=== PATIENT | female | born 1970 | race Caucasian/White ===

== ENCOUNTER → 2021-04-02 12:10 | Outpatient (CLI) | payer OTHER, SELFPAY ==
--- NOTE | 2021-04-02 12:12 | DI.RAD.S_ITS ---
PROCEDURE: XR SHOULDER LT MIN 2V INDICATIONS: L posterior shoulder pain post lifting injury TECHNIQUE: 3 views of the shoulder were acquired. COMPARISON: None. FINDINGS: Bones: No fractures or dislocations. No suspicious bony lesions. Visualized ribs appear intact. Soft tissues: No suspicious soft tissue calcifications. IMPRESSION: No acute osseous abnormality. Dictated by: Manuel Pittman M.D. on 04/02/2021 at 13:10 Approved by: Manuel Pittman M.D. on 04/02/2021 at 13:10
== END ==
PROVIDERS: Referring Provider Nurse Practitioner; Visit Provider Nurse Practitioner
DX: M25.512 Pain in left shoulder (principal); R20.2 Paresthesia of skin
CPT/HCPCS: 73030

== ENCOUNTER 2021-05-20 12:48 | Emergency (ER) | payer OTHER, SELFPAY ==
[2021-05-20 12:55] VITALS: BP 128/66; PULSE 74; RESP 14; TEMP 36.1; O2SAT 100; BMI 27.4
== END 2021-05-20 14:15 | disposition left against medical advice (07) ==
PROVIDERS: Emergency Provider Emergency Medicine
DX: Z53.21 Procedure and treatment not carried out due to patient leaving prior to being seen by health care provider (principal)
CPT/HCPCS: 99281

== ENCOUNTER 2021-06-22 14:35 | Emergency (ER) | payer OTHER, SELFPAY ==
[2021-06-22] VITALS (7 sets, daily range): BP systolic 124–144; BP diastolic 66–87; PULSE 63–77; RESP 14–24; TEMP 36.5; O2SAT 97–99; BMI 28.3
--- NOTE | 2021-06-22 14:39 | DI.RAD.S_ITS ---
PROCEDURE: XR CHEST 1V INDICATIONS: chest pain TECHNIQUE: One view of the chest was acquired. COMPARISON: None. FINDINGS: Surgical changes and devices: None. Lungs and pleura: Lungs are clear. No pleural effusions or pneumothorax. Mediastinum: Mediastinal contours appear normal. Heart size is normal. Bones and chest wall: No suspicious bony lesions. Overlying soft tissues appear unremarkable. IMPRESSION: Normal single-view chest x-ray Approved by: Crow De Jesus M.D. on 06/22/2021 at 14:15
[2021-06-22 16:11] LABS: Add Manual Diff / Slide Review NO; Basophils Absolute Auto 100 /uL (0-100); Basophils Percent Auto 1.3 % (0-2); Eosinophils Absolute Auto 200 /uL (0-450); Eosinophils Percent Auto 2.4 % (2-4); Hematocrit 35.5 % (36-46); Hemoglobin 11.9 g/dL (12.0-16.0); Lymphocytes Absolute Auto 2700 /uL (1100-4500); Lymphocytes Percent Auto 30.2 % (25-40); Mean Corpuscular HGB Conc 33.4 % (30-36); Mean Corpuscular Volume 83.9 fL (80-100); Monocytes Absolute Auto 600 /uL (0-900); Monocytes Percent Auto 6.7 % (3-14); Neutrophils Absolute Auto 5300 /uL (1500-7000); Neutrophils Percent Auto 59.4 % (50-75); Platelet Count 297 X10^3/uL (150-400); Red Blood Cell Count 4.24 X10^6/uL (4.0-5.2); White Blood Cell Count 8.9 X10^3/uL (4.5-11.0)
[2021-06-22 16:21] LABS: Alanine Aminotransferase 14 IU/L (<35); Albumin 4.4 g/dL (3.5-5.0); Albumin Globulin Ratio 1.5 (1.0-2.8); Alkaline Phosphatase 55 U/L (38-126); Aspartate Aminotransferase 23 IU/L (14-36); Bilirubin Total 0.3 mg/dL (0.2-1.3); Blood Urea Nitrogen 9 mg/dL (7-17); Calcium 9.2 mg/dL (8.4-10.2); Carbon Dioxide 25 mmol/L (22-32); Chloride 106 mmol/L (98-107); Creatine Kinase 70 U/L (30-135); Estimated Glomerular Filt Rate > 60.0 mL/min (>60); Glucose 91 mg/dL (70-100); HEMOLYSIS 17 (0-50); Lipase 95 U/L (23-300); Magnesium 1.6 mg/dL (1.6-2.3); Potassium 3.6 mmol/L (3.4-5.1); Sodium 137 mmol/L (137-145); Total Protein 7.4 g/dL (6.3-8.2)
[2021-06-22 16:31] LABS: Troponin I < 0.012 ng/mL (0.01-0.034)
[2021-06-22 19:24] LABS: COVID19 -Nasal RAPID Negative (Negative)
--- NOTE | 2021-06-22 20:00 | ED_ITS ---
HPI - Chest Pain General Chief Complaint: Chest Pain Stated Complaint: Chest pain x3 days, getting sharper/ up neck Time Seen by Provider: 06/22/21 19:46 Source: patient Mode of arrival: Ambulatory Limitations: no limitations History of Present Illness HPI narrative: Patient is a 50-year-old female who is here for evaluation of 3 days of a chest discomfort. She does state that it is been constant for the past 3 days. It is getting much more sharp in discomfort. Does radiate to her neck. Also feeling somewhat short of breath. No fevers. Not worse with palpation or movement. Not worse with moving her arm. Has not tried anything for the symptoms prior to arrival. Related Data Allergies Allergy/AdvReac Type Severity Reaction Status Date / Time No Known Drug Allergies Allergy Verified 05/20/21 12:57 Review of Systems Constitutional Constitutional: Reports system reviewed and no additional complaints, except as documented Cardiovascular Cardiovascular: Reports as per HPI and Reports system reviewed and no additional complaints, except as documented Respiratory Respiratory: Reports as per HPI and Reports system reviewed and no additional complaints, except as documented Gastrointestinal Gastrointestinal: Reports system reviewed and no additional complaints, except as documented Musculoskeletal Musculoskeletal: Reports system reviewed and no additional complaints, except as documented Integumentary/Breasts Skin/Breast: Reports system reviewed and no additional complaints, except as documented Neurologic Neurologic: Reports system reviewed and no additional complaints, except as documented Hematologic/Lymphatic On Anticoagulants: No Patient History Medical History Anxiety and depression (~1999) Chronic back pain (~1994) GERD (gastroesophageal reflux disease) (~2010) History of Graves' disease (~2018) Hyperthyroidism (~2018) Spine pain (~1994) Vitiligo Surgical History Anesthesia History of partial hysterectomy (~2007) History of sinus surgery (~1997) History of tonsillectomy and adenoidectomy (~1975) Family History Father Cancer Stroke Social History Smoking Status: Current every day smoker Smoking Status: Current every day smoker alcohol intake frequency: a few times a week Substance Use Type: does not use Exam Initial Vital Signs Initial Vital Signs: Vital Signs Temperature 97.7 F 06/22/21 14:39 Pulse Rate 77 06/22/21 14:39 Respiratory Rate 20 06/22/21 14:39 Blood Pressure 135/66 06/22/21 14:39 Pulse Oximetry 99 06/22/21 14:39 HENAR Head: normal to inspection Resp Effort & Inspection: normal respiratory effort Auscultation: clear to auscultation bilaterally Cardio Rate: regular rate Rhythm: regular rhythm Skin General: no rashes or lesions noted Neuro General: patient alert, patient awake, patient oriented x3 and moves all extremities Extrem General: normal to inspection and capillary refill normal Psych Appearance: grossly normal and well kempt Course Orders Ordered: ED Orders 06/22/21 18:32 COVID19 -Nasal swab/Pre-Proc Stat 06/22/21 20:10 Troponin I Stat Vital Signs Vital signs: Vital Signs - 8 hr 06/22/21 18:29 06/22/21 18:30 06/22/21 19:00 Pulse Rate 67 63 63 Respiratory Rate 15 14 16 Blood Pressure 124/74 137/76 Pulse Oximetry 99 99 98 06/22/21 19:30 06/22/21 20:00 06/22/21 20:30 Pulse Rate 63 64 64 Respiratory Rate 17 19 24 Blood Pressure 143/82 H 144/87 H Pulse Oximetry 97 98 97 MDM - Chest Pain Lab Data Attestation: I reviewed the patient's lab results. Result diagrams: 06/22/21 15:52 06/22/21 15:52 Labs: Lab Results 06/22/21 06/22/21 06/22/21 Range/Units 15:52 15:52 18:32 WBC 8.9 (4.5-11.0) X10^3/uL RBC 4.24 (4.0-5.2) X10^6/uL Hgb 11.9 L (12.0-16.0) g/dL Hct 35.5 L (36-46) % MCV 83.9 (80-100) fL MCH 28.0 (26-34) PG MCHC 33.4 (30-36) % RDW 13.0 (11.6-14.8) % Plt Count 297 (150-400) X10^3/uL Neut % (Auto) 59.4 (50-75) % Lymph % (Auto) 30.2 (25-40) % [place] % (Auto) 6.7 (3-14) % Eos % (Auto) 2.4 (2-4) % Baso % (Auto) 1.3 (0-2) % Neut # (Auto) 5300 (5975-0122) /uL Lymph # (Auto) 2700 (5744-0244) /uL [place] # (Auto) 600 (0-900) /uL Eos # (Auto) 200 (0-450) /uL Baso # (Auto) 100 (0-100) /uL Sodium 137 (137-145) mmol/L Potassium 3.6 (3.4-5.1) mmol/L Chloride 106 (98-107) mmol/L Carbon Dioxide 25 (22-32) mmol/L BUN 9 (7-17) mg/dL Creatinine 0.60 (0.52-1.04) mg/dL Estimated GFR > 60.0 (>60) mL/min BUN/Creatinine Ratio 15.0 (6-22) Glucose 91 (70-100) mg/dL Calcium 9.2 (8.4-10.2) mg/dL Magnesium 1.6 (1.6-2.3) mg/dL Total Bilirubin 0.3 (0.2-1.3) mg/dL AST 23 (14-36) IU/L ALT 14 (<35) IU/L Alkaline Phosphatase 55 (38-126) U/L Total Creatine Kinase 70 (30-135) U/L CK-MB (CK-2) TNP CK-MB (CK-2) Rel Index TNP Troponin I < 0.012 (0.01-0.034) ng/mL Total Protein 7.4 (6.3-8.2) g/dL Albumin 4.4 (3.5-5.0) g/dL Globulin 3.0 (1.7-4.1) g/dL Albumin/Globulin Ratio 1.5 (1.0-2.8) Lipase 95 (23-300) U/L SARS-CoV-2 (PCR) Negative (Negative) 06/22/21 Range/Units 20:10 WBC (4.5-11.0) X10^3/uL RBC (4.0-5.2) X10^6/uL Hgb (12.0-16.0) g/dL Hct (36-46) % MCV (80-100) fL MCH (26-34) PG MCHC (30-36) % RDW (11.6-14.8) % Plt Count (150-400) X10^3/uL Neut % (Auto) (50-75) % Lymph % (Auto) (25-40) % [place] % (Auto) (3-14) % Eos % (Auto) (2-4) % Baso % (Auto) (0-2) % Neut # (Auto) (6603-1948) /uL Lymph # (Auto) (6928-2680) /uL [place] # (Auto) (0-900) /uL Eos # (Auto) (0-450) /uL Baso # (Auto) (0-100) /uL Sodium (137-145) mmol/L Potassium (3.4-5.1) mmol/L Chloride (98-107) mmol/L Carbon Dioxide (22-32) mmol/L BUN (7-17) mg/dL Creatinine (0.52-1.04) mg/dL Estimated GFR (>60) mL/min BUN/Creatinine Ratio (6-22) Glucose (70-100) mg/dL Calcium (8.4-10.2) mg/dL Magnesium (1.6-2.3) mg/dL Total Bilirubin (0.2-1.3) mg/dL AST (14-36) IU/L ALT (<35) IU/L Alkaline Phosphatase (38-126) U/L Total Creatine Kinase (30-135) U/L CK-MB (CK-2) CK-MB (CK-2) Rel Index Troponin I < 0.012 (0.01-0.034) ng/mL Total Protein (6.3-8.2) g/dL Albumin (3.5-5.0) g/dL Globulin (1.7-4.1) g/dL Albumin/Globulin Ratio (1.0-2.8) Lipase (23-300) U/L SARS-CoV-2 (PCR) (Negative) Imaging Data Chest x-ray: Radiologist's Impression: [address] [address] XRay Report Signed Patient: Libra Ramirez MR#: [id number] : 1970 Acct:[id number] Age/Sex: 50 / F Date of Service: 06/22/21 Loc: ED Accession Number: [id number] ?? Procedure: XR chest 1V Ordering Provider: Lluvia Mckeon MD PROCEDURE:? XR CHEST 1V ? INDICATIONS:? chest pain ? TECHNIQUE:? One view of the chest was acquired.? ? COMPARISON:? None. ? FINDINGS:? ? Surgical changes and devices:? None.? ? Lungs and pleura:? Lungs are clear.? No pleural effusions or pneumothorax.? ? Mediastinum:? Mediastinal contours appear normal.? Heart size is normal.? ? Bones and chest wall:? No suspicious bony lesions.? Overlying soft tissues appear unremarkable.? ? IMPRESSION:? Normal single-view chest x-ray ? ? ? Approved by: Crow De Jesus M.D. on 06/22/2021 at 14:15? ECG Data Attestation: I personally reviewed and interpreted this ECG as follows: Interpretation: Sinus rhythm Ventricular rate of 74 Normal axis Normal QRS Normal QTC No ST T wave changes MDM Narrative Medical decision making narrative: COVID negative, troponin is negative x2. EKG is unremarkable. Has had symptoms for 3 days. Low suspicion for ACS. Low suspicion for pulmonary embolism. Chest x-ray is negative. No indication for antibiotics. The patient contact her primary doctor for further workup. She was given return precautions. She expressed understanding and agreement. Discharge Plan Departure Patient Disposition: Home Clinical Impression: Atypical chest pain Instructions: DI for Atypical Chest Pain Activity Restrictions/Additional Instructions: Contact your primary doctor for a follow-up. Return to the emergency department for any new or worsening symptoms.
[2021-06-22 20:50] LABS: Troponin I < 0.012 ng/mL (0.01-0.034)
== END 2021-06-22 21:13 | disposition home or self-care (01) ==
PROVIDERS: Emergency Medicine; Emergency Provider Emergency Medicine
DX: R07.89 Other chest pain (principal); Z20.822 Contact with and (suspected) exposure to COVID-19
CPT/HCPCS: 36415; 71045; 80053; 82550; 83690; 83735; 84484; 85025; 87635; 93005; 99283; 99284; C9803

== ENCOUNTER → 2021-11-10 08:31 | Outpatient (CLI) | payer OTHER, SELFPAY ==
[2021-11-10 09:59] LABS: Add Manual Diff / Slide Review NO; Basophils Absolute Auto 0 /uL (0-100); Basophils Percent Auto 0.8 % (0-2); Eosinophils Absolute Auto 200 /uL (0-450); Hematocrit 35.5 % (36-46); Hemoglobin 11.9 g/dL (12.0-16.0); Lymphocytes Absolute Auto 2200 /uL (1100-4500); Lymphocytes Percent Auto 34.6 % (25-40); Mean Corpuscular HGB Conc 33.4 % (30-36); Mean Corpuscular Hemoglobin 28.3 PG (26-34); Mean Corpuscular Volume 84.7 fL (80-100); Monocytes Absolute Auto 500 /uL (0-900); Monocytes Percent Auto 8.2 % (3-14); Neutrophils Absolute Auto 3300 /uL (1500-7000); Neutrophils Percent Auto 52.4 % (50-75); Platelet Count 265 X10^3/uL (150-400); Red Blood Cell Count 4.19 X10^6/uL (4.0-5.2); White Blood Cell Count 6.2 X10^3/uL (4.5-11.0)
== END ==
PROVIDERS: Referring Provider Orthopaedic Surgery Orthopaedic Surgery of the Spine; Visit Provider Orthopaedic Surgery Orthopaedic Surgery of the Spine
DX: Z01.812 Encounter for preprocedural laboratory examination (principal)
CPT/HCPCS: 36415; 85025

== ENCOUNTER → 2021-11-20 11:41 | Outpatient (CLI) | payer OTHER, SELFPAY ==
[2021-11-20 12:28] LABS: COVID19 -Nasal RAPID Negative (Negative)
== END ==
PROVIDERS: Visit Provider Family Medicine Sleep Medicine
DX: Z20.822 Contact with and (suspected) exposure to COVID-19 (principal)
CPT/HCPCS: 87635

== ENCOUNTER 2021-11-23 12:11 | Day surgery (SDC) | payer OTHER, SELFPAY ==
[2021-11-18 08:16] VITALS: BMI 28.3
[2021-11-23] VITALS (12 sets, daily range): BP systolic 117–155; BP diastolic 68–88; PULSE 75–102; RESP 10–19; TEMP 35.8–36.8; O2SAT 91–99; BMI 28.3
[2021-11-23] MEDS: LACTATED RINGERS 1,000 ML 100 ML IV ×2 (12:49→15:28)
--- NOTE | 2021-11-23 13:37 | PM.PREOP ---
Pre-operative Note COVID-19 COVID-19 status: Negative Result date/Date tested (Pos, Neg/Pending): 11/22/21 Criteria for continued procedure: Expected advancement of disease process, Possibility delay results in more complex future surgery or treatment, Increased loss of function, Continuing or worsening of significant or severe pain, Deterioration of the patient's condition or overall health and Delay expected to result in less-positive ultimate med/surg outcome Interval Note History & Physical reviewed/Exam performed by Physician: Yes Changes to H&P: No
[2021-11-23] MEDS: CEFAZOLIN 2 GM/20 ML SYRINGE IV ×2 (14:28→22:30)
--- NOTE | 2021-11-23 14:46 | SUR.OPER ---
Supine on padded OR bed, head on pillow, arms secured at sides with blanket and towel clamps, legs uncrossed, safety belt at thigh, tape over blanket over lower legs.
[2021-11-23] MEDS: BUPIVACAINE 0.25% (PF) 30 ML, EPINEPHrine 0.15 MG INJ (16:20)
--- NOTE | 2021-11-23 16:29 | DI.RAD.S_ITS ---
PROCEDURE: XR CERVICAL SPINE 2V OR 3V INDICATIONS: C5-6, C6-7 ACDF TECHNIQUE: 2 intraoperative view(s) of the cervical spine were acquired. COMPARISON: [facility] [place] RENEE Gunter, XR CERVICAL SPINE 2 OR 3 VIEWS, 05/25/2021, 13:11. FINDINGS: ACDF spanning C5-C7. The hardware projects in the expected location on the frontal projection. On the lateral view of the inferior aspect of the hardware is not well seen. Ray-Ronaldo sponge at the left neck. Endotracheal tube in the upper trachea. IMPRESSION: Intraoperative guidance provided for ACDF. Dictated by: Manuel Pittman M.D. on 11/23/2021 at 16:48 Approved by: Manuel Pittman M.D. on 11/23/2021 at 16:51
--- NOTE | 2021-11-23 16:35 | PM.OP.1 ---
Operative Date/Time/Diagnoses Date of procedure: 11/23/21 Time of procedure: 14:00 Pre-op diagnosis: 1. C5-6, C6-7 spinal stenosis 2. C5-6, C6-7 spondylosis with radiculopathy Post-op diagnosis: same Procedure & Clinicians Procedure: 1. C5-6 C6-7 anterior cervical diskectomy and fusion 2. C5-6 C6-7 anterior interbody cage placement 3. C5-6 C6-7 anterior instrumentation with plate and screw placement in C5-C6 and C7 vertebrae 4. Utilization of microsurgical technique and operating microscope Same procedure as scheduled: Yes Indications: Patient has been having chronic neck pain and worsening cervical radiculopathy. Patient failed multiple conservative management with worsening pain weakness and numbness in her upper extremity. Patient has been having difficulty performing activity of daily living. After discussing risks benefits of treatment options, patient elected proceed with surgery. Surgeon: Markos Wong Dimpling Machine Operator: Katlin Hernandez Click Yes if Unassisted: No Anesthesia Type: General Operative Notes Closure Type: primary Specimen(s): none sent Prosthetic devices, grafts, tissues, transplants, or devices: Globus Extend Plate, Titanium cages Estimated Blood Loss (mL): 5 Blood products transfused: none Procedure in detail: Patient was seen in the preoperative area. Risks and benefits of the surgery was discussed with the patient. Operative consent was obtained and placed in the chart. Patient was then taken to the operative room. Prophylactic antibiotic was given less than 0.5 hr prior to skin incision. General anesthesia was administered. Patient was placed into a supine position on her radiolucent table. Bilateral shoulders were taped down to allow proper C-arm imaging. Anterior cervical area was prepped and draped in a sterile fashion. Time-out was performed at this time. Using lateral C-arm imaging, the level between C5 and C7 was identified and marked on patient's neck. A oblique incision from midline towards medial border of sternocleidomastoid muscle was made. The platysma muscle was incised in line with skin incision. Metzenbaum scissor was used to develop the plane between the medial border of sternocleidomastoid d and the strap muscles medially. The carotid sheath and its contents were identified and protected behind the hand-held retractor during the entire case. The plane between the carotid sheath and strap muscles was developed with Metzenbaum scissors. Dissection was made down to the level of the anterior cervical fascia. Longus colli muscle was incised on the anterior aspect of vertebral bodies bilaterally from C5-C7. Spinal needle was placed into the C5-6 disc space and confirmed with lateral C-arm imaging. Using microsurgical technique and operative microscope, anterior cervical diskectomy was performed at C5-6 and C6-7 level. This was done by removing the disc material, removing the anterior and posterior osteophytes posterior longitudinal ligaments along with performing bilateral foraminotomies at both levels. Patient was found to have severe central and foraminal stenosis at both levels. Patient's stenosis was fully decompressed after decompression was completed. After the diskectomy was completed, 2 anterior interbody cages were obtained. The cages were packed with DBM bone grafting material. One cage each along with the bone grafting material was then packed into the interbody spaces from C5-C7 with one cage into each interbody level. After the cages were placed, the anterior cervical plate was stabilized to the C5-C7 vertebrae using 2 screws at each each level. Total 6 screws were placed. After confirming placement of the hardware with AP and lateral C-arm imaging, the screws were locked into the plate using the locking mechanism and torque limiting screwdriver. After the hardware was placed and confirmed with AP and lateral C-arm imaging, the wound was irrigated with sterile normal saline. The platysma muscle and the subcutaneous tissue was closed with 2-0 Vicryl. The skin was closed with 4-0 Monocryl and Steri-Strips. Patient tolerated the procedure well. Patient was transferred recovery room in stable condition. There were no complications. Complications: none Post-operative Condition: stable Disposition: PACU Plan for aftercare: Admit to inpatient hospital
[2021-11-23] MEDS: fentaNYL 100 MCG/2 ML INJ 50 MCG IV (17:10)
[2021-11-23] MEDS: fentaNYL 100 MCG/2 ML INJ IV (17:20)
[2021-11-23] MEDS: LORazepam 2 MG/ML INJ 0.5 MG IV (17:25)
[2021-11-23] MEDS: OXYCODONE/ACETAMINOPHEN 5/325 TABLET 1 TAB PO ×2 (17:28→17:58)
[2021-11-23] MEDS: SODIUM CHLORIDE 0.9% 1,000 ML 100 ML IV (18:29)
[2021-11-23] MEDS: DOCUSATE 100 MG CAPSULE PO (20:06)
[2021-11-23] MEDS: SENNOSIDES 8.6 MG TABLET 17.2 MG PO (20:07)
[2021-11-23] MEDS: OXYCODONE IR 5 MG TABLET PO ×2 (20:07→23:06)
[2021-11-23] MEDS: HYDROMORPHONE 0.5 MG INJ IV (22:14)
[2021-11-24] MEDS: HYDROMORPHONE 0.5 MG INJ IV ×2 (01:20→04:07)
[2021-11-24] MEDS: OXYCODONE IR 5 MG TABLET PO ×3 (02:50→10:13)
[2021-11-24 05:23] VITALS: BP 120/74; PULSE 71; RESP 19; TEMP 36.4; O2SAT 96
[2021-11-24] MEDS: CEFAZOLIN 2 GM/20 ML SYRINGE IV (05:49)
[2021-11-24] MEDS: PANTOPRAZOLE DR 40 MG TABLET PO (05:49)
--- NOTE | 2021-11-24 07:32 | P.DS_ITS ---
History of Present Illness History of Present Illness Date Patient Seen: 11/24/21 Time Patient Seen: 07:33 Chief complaint: Neck pain Narrative: Currently her pain is mild. She is tired and she was kept up all night by the noise and staff constantly in her room. No fever chills. No nausea vomiting. States her throat is little sore but not having difficulty swallowing. No shortness of breath or chest pain. Discharge Providers Provider Discharge Date: 11/24/21 Primary care physician: Doctor Jonnie MD Consults: 11/23/21 12:58 Consult to Respiratory Therapy Evaluate & Treat Comment: Physician Instructions: Evaluate and treat 11/23/21 18:05 Consult to Occupational Therapy Evaluate & Treat Comment: Physician Instructions: Evaluate and treat Consult to Physical Therapy Evaluate & Treat Comment: Physician Instructions: Evaluate and Treat Discharge provider: Andrzej Camara PA-C Summary Hospital Course Discharge Diagnosis: 1. C5-6, C6-7 spinal stenosis 2. C5-6, C6-7 spondylosis with radiculopathy Hospital Course: 1.? C5-6 C6-7 anterior cervical diskectomy and fusion 2.? C5-6 C6-7 anterior interbody cage placement 3.? C5-6 C6-7 anterior instrumentation with plate and screw placement in C5-C6 and C7 vertebrae 4.? Utilization of microsurgical technique and operating microscope Same procedure as scheduled: Yes Indications: Patient has been having chronic neck pain and worsening cervical radiculopathy. Patient failed multiple conservative management with worsening pain weakness and numbness in her upper extremity.? Patient has been having difficulty performing activity of daily living.? After discussing risks benefits of treatment options, patient elected proceed with surgery. Surgeon: Markos Wong Search Marketing Coordinator: Katlin Hernandez Click Yes if Unassisted: No Anesthesia Type: General Patient admitted to hospital for the above-mentioned procedure. Patient consented to the same. Patient taken to the operating room on November 24, 2019 to underwent C5-C6 C6-C7 anterior fusion. Patient back in her room recovering well as in stable condition. Patient has assistance at home. Patient will mobilize with physical therapy in both discharge home today in stable condition if safe for home environment. Exam Vital Signs (past 8 hours): - 11/24/21 05:23 Temperature 97.5 F L Pulse Rate 71 Respiratory Rate 19 Blood Pressure 120/74 Pulse Oximetry 96 Oxygen Delivery Method Room Air Oxygen Flow Rate 0 Narrative Exam Narrative: 51-year-old female resting comfortably in bed in no apparent distress. Cervical collar in place. Scant drainage on the dressing. Motor functions intact bilateral upper extremities. Sensation grossly intact to light touch bilateral upper extremities. Const General: cooperative Resp Effort & Inspection: normal respiratory effort and able to speak in complete sentences [facility] Medical History Anxiety and depression (~1999) Arthritis Chronic back pain (~1994) DDD (degenerative disc disease) GERD (gastroesophageal reflux disease) (~2010) History of Graves' disease (~2018) Hx of thyroid irradiation Hyperthyroidism (~2018) IBS (irritable bowel syndrome) Numbness and tingling Salmonella (2012) Spinal stenosis, cervical region Spine pain (~1994) Vitiligo Surgical History Anesthesia History of partial hysterectomy (~2007) History of sinus surgery (~1997) History of tonsillectomy and adenoidectomy (~1975) Family History Father Cancer Stroke Social History household members: spouse Smoking Status: Current every day smoker alcohol intake: current Discharge Assessment & Plan Assessment and Plan Assessment: Patient progressing as expected status post cervical fusion. Plan of Treatment: Mobilize with physical therapy Soft collar for come Limit bending, twisting, lifting Multimodal pain management Discharge home today in stable condition Discharge Plan Discharge Plan Patient Disposition: Home Discharge orders & Medications Discharge Orders: Discharge (Order); Ordered 11/24/21 Ordered By: Andrzej Camara Prescriptions: New acetaminophen 325 mg Tablet 650 mg PO Q6HR PRN (Reason: Pain, Mild (1-3)) Qty: 60 0RF docusate sodium 100 mg Capsule 100 mg PO BID Qty: 20 0RF oxycodone 5 mg Tablet 5 mg PO Q3HR PRN (Reason: Pain, Moderate (4-6)) Qty: 60 0RF hydroxyzine pamoate 25 mg Capsule 25 mg PO Q4HR PRN (Reason: Nausea And Vomiting) Qty: 20 0RF Continued escitalopram oxalate 20 mg Tablet 20 mg PO DAILY 0RF cetirizine [Zyrtec] 10 mg Tablet 10 mg PO DAILY 0RF omeprazole 40 mg Capsule,Delayed Release(Dr/Ec) 40 mg PO DAILY 0RF levothyroxine 150 mcg Tablet 150 mcg PO DAILY 0RF Label Comments: Pt takes extra 1/2 tab one day a week(Tuesday) Follow up/Referrals: Markos Wong MD [Physician] - (2 weeks) Doctor Cristina MD [Primary Care Provider] - Diet/Activity/Treatments Diet: Diet as Tolerated Activity: Limit bending, twisting, lifting Other treatments: Soft collar for comfort Skin/Wound/Dressing Care Report to your healthcare provider any signs of infection, such as:: chills, fever, increased pain, unusual drainage and unusual redness Dressing: Keep dressing clean and dry Visit Report/Discharge Packet Instructions: DI for Anterior Cervical Discectomy and Fusion Stand Alone Forms: Surgery Discharge Discharge Data Primary Care Provider: Doctor Jonnie Attending Provider: Markos Wong
[2021-11-24 08:00] VITALS: BP 130/85; PULSE 70; RESP 17; TEMP 36.6; O2SAT 95
[2021-11-24] MEDS: LORATADINE 10 MG TABLET PO (08:24)
[2021-11-24] MEDS: LEVOTHYROXINE 150 MCG TABLET PO (08:24)
[2021-11-24] MEDS: ESCITALOPRAM 10 MG TABLET 20 MG PO (08:24)
[2021-11-24] MEDS: DOCUSATE 100 MG CAPSULE PO (08:24)
--- NOTE | 2021-11-24 09:05 | OT.IP.EVAL ---
Current Diagnoses Other spondylosis with myelopathy, cervical region (11/23/21) Spinal stenosis, cervical region (11/23/21) Surgery Performed Operation Date: 11/23/21 13:45 Actual Procedures p C5-6, C6-7 ACDF w. anterior instrumentation(Not Applicable) - Markos Wong MD Past Medical History (Last Reviewed 11/24/21 @ 07:36 by Andrzej Camara PA-C) Anxiety and depression (~1999) Arthritis Chronic back pain (~1994) DDD (degenerative disc disease) GERD (gastroesophageal reflux disease) (~2010) History of Graves' disease (~2018) History of partial hysterectomy (~2007) History of sinus surgery (~1997) History of tonsillectomy and adenoidectomy (~1975) Hx of thyroid irradiation Hyperthyroidism (~2018) IBS (irritable bowel syndrome) Numbness and tingling Salmonella (2012) Spinal stenosis, cervical region Spine pain (~1994) Vitiligo Surgical History (Last Reviewed 11/24/21 @ 07:36 by Andrzej Camara PA-C) Anesthesia History of partial hysterectomy (~2007) History of sinus surgery (~1997) History of tonsillectomy and adenoidectomy (~1975) Occupational Therapy Inpatient Evaluation/Re-Eval M1 PT/OT-IP Prior Functional Status Start: 11/24/21 09:29 Freq: NEEDED Status: Active Protocol: Document 11/24/21 09:05 [facility] (Rec: 11/24/21 09:45 [facility] [id number]) Medical Review Prior Functional Status Communication Independent Mobility and Gait Independent and did not use a device. Activities of Daily Living and IADL's Had pain but able to do all her ADL and IADL needs with increased time. Social History Household Members spouse Living Arrangements House Number of Stairs To Enter/Railing? 5-6 steps with bilateral wide rails to get into the house. 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 M2 OT-IP Current Condition Start: 11/24/21 09:29 Freq: Status: Active Protocol: Document 11/24/21 09:05 [facility] (Rec: 11/24/21 09:45 [facility] [id number]) Occupational Therapy Current Condition Current Condition Evaluation Date 11/24/21 Treatment Diagnosis S/p C5-6, C6-7 ACDF Diagnosis Onset Date 11/23/21 M3 OT- IP Subjective and Pain Start: 11/24/21 09:29 Freq: Status: Active Protocol: Document 11/24/21 09:05 [facility] (Rec: 11/24/21 09:45 [facility] [id number]) OT- Subjective Occupational Therapy Visit Type Type Initial Evaluation Visit Start Time 09:05 Visit Stop Time 09:26 Total Visit Minutes 21 Occupational Therapy Visit Comments Patient Comments Pt agreed to get up and get dressed. Pt's present in the room. Patient/Caregiver Goals TO go home. OT Pain Assessment Pain When Pain Assessed At Rest Pain Present Pain Present Pain Reported Location Posterior Neck Intensity 6 Scale Used Numeric (0 - 10) M4 OT- IP ADL's Start: 11/24/21 09:29 Freq: Status: Active Protocol: Document 11/24/21 09:05 [facility] (Rec: 11/24/21 09:45 [facility] [id number]) OT [id number] Comments OT Self-Feeding Comments Educated pt on suggestions for swallowing needs after ACDF, chew food thoroughly, sit upright, cold food and softer foods. OT ADL-Grooming General Evaluation Grooming Ability Independent OT ADL-Oral Care General Eval Oral Care Ability Standby Assistance Comments Oral Care Comments Educated to either spit into cup or hinge at her hips to spit in the sink. OT ADL-Dressing General Eval Upper Body Dressing Ability Minimal Assistance Lower Body Dressing Ability Standby Assistance Comments OT Dressing Comments Assist to help get tank top over her head first and then able to get her arms in . Pt able to comfortably cross her legs over to maryann her pants. OT ADL-Toileting Comments OT Toileting Comments Pt states has already been up to use the toilet. Suggested at night may be beneficial to wears pads at night as pt has to get up 1-2 times at night. ALso suggested wet ones can be helpful for hygiene needs. OT ADL-Bathing Comments OT Bathing Comments Pt states to shower at home. Pt's to assist and pt aware to get a shower chair if needed. M5 OT- IP IADL's Start: 11/24/21 09:29 Freq: Status: Active Protocol: Document 11/24/21 09:05 [facility] (Rec: 11/24/21 09:45 [facility] [id number]) OT-Instrumental Activities of Daily Living Home Safety Awareness Awareness of Need for Assistance at Home Good Awareness Ability to Problem Solve Emergency Able to Problem Solve Situations Home Safety Comments Pt's to be home to assist pt for needs. M6 OT- IP Functional Cognition Start: 11/24/21 09:29 Freq: Status: Active Protocol: Document 11/24/21 09:05 [facility] (Rec: 11/24/21 09:45 [facility] [id number]) Cognitive Factors Limiting Selfcare Function Cognitive Ability Level of Alertness Alert Patient Orientation Name,Age,Birthday,Month,Date, Year,Day of Week,Place, Situation Attention Span Ability Capable of Focused Attention, Capable of Sustained Attention Ability to Follow Commands Able to Follow Multi-Step Commands Memory Description No Deficits Noted Safety Awareness No Deficits Noted Cognitive Comments Cognitive Assessment Comments Pt just mainly needing assist to slow down and be sure to ask for assistance as needed. OT- Vision and Hearing OT- Hearing Assessment OT- Hearing Assessment WFL OT- Vision Assessment Visual Acuity Glasses For Reading M7 OT- IP Mobility and Balance Start: 11/24/21 09:29 Freq: Status: Active Protocol: Document 11/24/21 09:05 [facility] (Rec: 11/24/21 09:45 [facility] [id number]) OT- Bed Mobility Assessment Rolling Type of Rolling Log Rolling Level of Assistance Standby Assistance Supine to Sit Supine to Sit Assist Standby Assistance Sit to Supine Sit to Supine Assist Standby Assistance OT-Transfer Assessment Sit to and From Stand Sit to and from Stand Standby Assistance Transfers Transfer Ability Standby Assistance Technique Transfer Destination Bed Transfer Technique Stand Step Pivot Devices Transfer Assistive Devices None Comments Mobility Comments Pt needing initial education for log rolling and then able to do on her own. Distant SBA for mobility in the room without a device. OT- Balance Assessment Sitting Balance and Reactions Static Sitting Balance Ability Normal Dynamic Sitting Balance Ability Good Standing Balance and Reactions Static Standing Balance Ability Good M8 OT- IP Objective Assessments Start: 11/24/21 09:29 Freq: Status: Active Protocol: Document 11/24/21 09:05 [facility] (Rec: 11/24/21 09:45 [facility] [id number]) OT-Muscle Tone Assessment Muscle Tone WNL Yes M9 OT- IP Assessment and Plan Start: 11/24/21 09:29 Freq: Status: Active Protocol: Document 11/24/21 09:05 [facility] (Rec: 11/24/21 09:45 [facility] [id number]) OT Summary Assessment and Plan Potential Rehabilitation Potential Excellent Analytic Complexity at Evaluation Low Summary OT Impairments Dressing,Bathing Progress Towards Goals Progressing Toward Goals Assessment Summary Pt Low complexity and main barrier are pt needing reminders to slow down and ask for assist as needed. Pt has a supportive to assist with her needs at home. Pt to go home when medically stable . Goals Bathing Goal Independent Days to Meet Goals 1 Frequency of Treatment Frequency Of Treatment Once a Day Treatment Plan OT Treatment Plan ADL Training,Functional Mobility,Patient/Family Education,Discharge Planning Other Treatment Recommendations and Next shower if still here Treatment Focus Discharge Recommendations OT Discharge Recommendations Home with Assistance Home Equipment Needs shower chair? Transportation Needs at Discharge Private Vehicle
[2021-11-24 09:09] VITALS: O2SAT 92
--- NOTE | 2021-11-24 09:30 | CM.DANOTE ---
Patient is a 51 yo female who was admitted on 11/23/21 for Cervical Surg. Pt has PRE DIM and COMM for insurance and her PCP is not listed. EMR was reviewed. Per Ortho PA, pt tolerated procedure well and pain seems to be controlled but pt tired due to lack of sleep last night and no n/v and likely stable for d/c home today pending PT/OT. PT/OT ordered and pending. SW met bedside with pt and spouse and explained role and they confirm they live at home in [place] and pt is independent at baseline with ADL's, drives, works and denies any hx of HH or SNF or surgeries. Pt confirms that spouse took time off work to assist / at d/c and they are very hopeful for d/c home this morning and do not anticipate any d/c needs. Plan: SW to follow for PT/OT eval and recommendations to confirm safe d/c home with spouse assist later today and any further identified needs. ESTEPHANIE Mukherjee Discharge Planning/Care Management CM Discharge Assessment Start: 11/24/21 09:29 Freq: Status: Active Protocol: Document 11/24/21 09:29 [facility] (Rec: 11/24/21 09:30 [facility] [id number]) Discharge Planning Assessment Assigned Research Lab Assistant ESTEPHANIE Maxwell DPOA/Assigned Designee Name spouse informally Advance Directives? No Advance Directives on File No History Provided By Patient,Significant Other, Medical Record Has Patient been admitted in last 30 No days? Prior Living Arrangements House Household Members spouse Type of transporation used prior to Drives own vehicle admit Independent with ADL's Yes Is patient alert and oriented? Yes Caregiver for Another No Patient/Family Preference OP PT Therapy Barriers to Discharge No Discharge Plan Home Community Services Physical Therapy Transportation Arrangement Spouse bedside and can transport at d/c Referrals Initiated None needed Whiteboard Updated in Patient Room with Yes name and ext. # of Research Lab Assistant Review Status In Process Please Provide Date Initial DC 11/24/21 Assessment Was Performed Next Review Type Continued Stay Review Pre-Anesthesia Assessment Start: 11/18/21 08:16 Freq: Status: Active Protocol: Document 11/18/21 08:16 [facility] (Rec: 11/18/21 09:25 [facility] [id number]) Pre-Anesthesia Assessment Patient Information Reviewed Via Phone Assessment Assessment Completed With Patient H&P Completed Within 30 Days Yes Diagnostic Results CBC Comment CBC only @ 11/10/21, COVID screen @ 11/20/21 Primary Care Provider Esteban Seen Specialist in Last 12 Months Yes Specialist Seen Emergency,Orthopedist Primary Language Bhutanese Archeologist Required No Height 165.1 cm Weight 77.111 kg Body Mass Index (BMI) 28.3 Hearing Ability Normal Visual Assist Glasses Dentition Type Teeth, Natural Present Barriers to Learning None Hx Anesthesia Reactions Yes: PONV Hx Family Anesthesia Reaction No Hx Malignant Hyperthermia No Hx Blood Transfusions No Anesthesia Review Requested No alcohol intake current alcohol intake frequency a few times a week Smoking Status Current every day smoker Tobacco type cigarettes Smoking packs per day 0.5 Substance Use Type does not use Pain Present Pain Reported Musculoskeletal Symptoms Back Pain,Limited Range of Motion,Neck Pain,Numbness, Radiating Pain into Limb, Tingling History of Falling (Recent or History of No ) Patient is completely paralyzed or No completely immobile Mental Status Oriented to own ability Is patient on oxygen? No Does patient have RONDON/SOB No Hx Sleep Apnea No Currently Taking a Beta Dipika No Can You Climb a Flight of Stairs Without Yes SOB Hx Chest Pain Yes: Atypical-recent eval @ ER 06/22/21-neg for cardiac Hx SOB Yes Hx Syncope or Dizziness No Anti-Coagulant Therapy No Has a Roll Capper No Cardiac Testing No Hx Pacemaker/ICD No Pacemaker Rep Required? No Cardiac Clearance Received Not Applicable Diet Type At Home Regular dysphagia No Gastrointestinal Symptoms Diarrhea,Reflux Urinary Catheter Present No Hx Urinary Self Catheterization No Diabetes No Patient No Lactating No Hx Drug Resistant Organism No Presence of External or Internal Medical No Devices Have you had any close contact with Yes: Pt had Covid 07/2021 someone diagnosed with COVID-19? Received a COVID vaccine? Yes Received all doses? Yes Marital Status Lives With spouse Prior Living Arrangements House Number of Floors (Floors) Two Floors Support System Spouse Does the Patient Have Assistance After Yes Surgery Patient Discharge Plan Description Return Home Comment Pt advised 1 night length of stay per surgeon Feels Safe in Current Environment Yes Been Physically Hurt or Threatened By a No Person in Current Environment Do you have thoughts of harming yourself None or others? Are you currently considering suicide? No Do you have a plan to hurt yourself or No Plan others? Do You Have Any Spiritual Beliefs That No May Affect Your HC Choices? Do You Have Any Cultural Practices That No May Affect Your HC Choices? Who Can We Speak to About Patient's Care Family, friends Identifying Code for Release of Patient Declines to issue Information Health Care Proxy/Next of Kin Ed () Health Care Proxy Emergency Contact Name Ed () Emergency Contact Advance Directives? No Power of Lane Marker Installer No PAC Instructions Medications to take/avoid, Nasal antibiotic,No ETOH/ petroleum product on skin DOS, NPO,Post-op transportation,Pre -surgical wash,Sturdy shoes/ comfortable clothes,Do not bring valuables and remove jewelry
--- NOTE | 2021-11-24 09:35 | PT.IIE ---
Current Diagnoses Other spondylosis with myelopathy, cervical region (11/23/21) Spinal stenosis, cervical region (11/23/21) Surgery Performed Operation Date: 11/23/21 13:45 Actual Procedures p C5-6, C6-7 ACDF w. anterior instrumentation(Not Applicable) - Markos Wong MD Surgical History (Last Reviewed 11/24/21 @ 07:36 by Andrzej Camara PA-C) Anesthesia Medical History (Last Reviewed 11/24/21 @ 07:36 by Andrzej Camara PA-C) Anxiety and depression (~1999) Arthritis Chronic back pain (~1994) DDD (degenerative disc disease) GERD (gastroesophageal reflux disease) (~2010) History of Graves' disease (~2018) Hx of thyroid irradiation Hyperthyroidism (~2018) IBS (irritable bowel syndrome) Numbness and tingling Salmonella (2012) Spinal stenosis, cervical region Spine pain (~1994) Vitiligo Physical Therapy Inpatient Evaluation/Re-Eval M1 PT/OT-IP Prior Functional Status Start: 11/24/21 09:29 Freq: NEEDED Status: Discharge Protocol: Document 11/24/21 09:05 [facility] (Rec: 11/24/21 09:45 [facility] [id number]) Medical Review Prior Functional Status Communication Independent Mobility and Gait Independent and did not use a device. Activities of Daily Living and IADL's Had pain but able to do all her ADL and IADL needs with increased time. Social History Household Members spouse Living Arrangements House Number of Stairs To Enter/Railing? 5-6 steps with bilateral wide rails to get into the house. 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 M1 PT/OT-IP Prior Functional Status Start: 11/24/21 12:45 Freq: NEEDED Status: Active Protocol: Document 11/24/21 09:35 [facility] (Rec: 11/24/21 13:00 [facility] [id number]) Medical Review Prior Functional Status Medical History Reviewed Yes Communication able to make needs known Mobility and Gait pt stated that she is independent with all mobilities and ambulation without AD Social History Household Members spouse Living Arrangements House Number of Floors (Floors) Two Floors Number of Stairs To Enter/Railing? 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 M2 PT-IP Current Condition Start: 11/24/21 12:45 Freq: NEEDED Status: Active Protocol: Document 11/24/21 09:35 [facility] (Rec: 11/24/21 13:00 AB [id number]) Physical Therapy Current Condition Current Condition Evaluation Date 11/24/21 Treatment Diagnosis C5-6,6-7 ACDF; difficulty in walking Onset Date 11/23/21 M3 PT-IP Subjective Start: 11/24/21 12:45 Freq: NEEDED Status: Active Protocol: Document 11/24/21 09:35 [facility] (Rec: 11/24/21 13:00 AB [id number]) Subjective Physical Therapy Visit Type Type Initial Evaluation Visit Start Time 09:35 Visit Stop Time 09:47 Total Visit Minutes 12 Number of KETTLE HAND Visits 0 Physical Therapy Visit Comments Patient Comments agreeable to do PT Therapy Pain Assessment Pain When Pain Assessed At Rest Pain Present Pain Present Pain Reported Location Posterior Neck Intensity 6 Scale Used Numeric (0 - 10) Pain Management Techniques Distraction,Modification of Treatment,Re-positioning, Timing of Activity with Medications M4 PT-IP Mobility and Gait Start: 11/24/21 12:45 Freq: NEEDED Status: Active Protocol: Document 11/24/21 09:35 [facility] (Rec: 11/24/21 13:00 [facility] [id number]) PT-Bed Mobility Assessment Rolling Type of Rolling Log Rolling Level of Assist Standby Assistance Supine to Sit Supine to Sit Standby Assistance Sit to Supine Sit to Supine Standby Assistance PT-Transfer Assessment Sit to and From Stand Sit to and from Stand Independent Equipment Transfer Assistive Device None Orthotic/Prosthetic Devices or Brace: Yes Transfers Transfer Destination Bed,Chair Transfer Technique ambulated Transfer Ability Level of Assist Standby Assistance Comments Mobility Comments pt sitting on the chair and spouse in room. pt agreed to do PT. completed sit to stand SBA and ambulated to the bed SBA. unsteady gait with occasional LOB but with recovery without assistance needed. completed log roll sit<>supine SBA. agreed to walk to the stairs. completed ambulation without AD SBA ~ 150 ft. completed up/down steps using L rail ascending SBA. repeated x 3 sets. pt ambulated back to her room SBA . pt stated that OT already addressed soft collar management and without any other concerns. Left pt with spouse in room. Gait Assessment Gait Gait Assistance Required: Standby Assistance Distance (Feet) 150 Able to Maintain Weight Bearing Status Yes During Gait Assistive Devices Assistive Device None,Gait Belt Orthotic/Prosthetic Devices or Brace: Yes Factors Limiting Gait Function Factors Limiting Gait Function Decreased Activity Tolerance, Decreased Strength,Limited Range of Motion,Pain,Poor Balance,Poor Safety Awareness Stair Climbing Assessment Evaluation Level of Assist On Stairs Standby Assistance Devices Stair Climbing Assistive Devices Left Railing Technique/Endurance Stair Climbing Direction Ascend and Descend Stair Climbing Technique Step Over Step,Step to Step Number of Steps Climbed 3 Query Text: Stair Climbing Set # Repetitions (reps) 3 PT-Balance Assessment Sitting Balance and Reactions Static Sitting Balance Ability Normal Dynamic Sitting Balance Ability Normal Standing Balance and Reactions Static Standing Balance Ability Good Dynamic Standing Balance Ability Fair Device Used without AD M5 PT-IP Objective Assessments Start: 11/24/21 12:45 Freq: NEEDED Status: Active Protocol: Document 11/24/21 09:35 [facility] (Rec: 11/24/21 13:00 AB [id number]) Orientation Orientation/Cognition Level of Alertness Alert Orientation Name,Place,Situation Language Function Ability No Deficits Noted Safety Awareness Decreased Safety Awareness Memory Description No Deficits Noted Gross Range of Motion Lower Extremity ROM Assessment Within Functional Limits Strength Lower Extremity Strength Assessment Within Functional Limits Coordination Assessment Gross Coordination Gross Coordination WNL Sensation Assessment Sensation Gross Sensation WNL Muscle Tone Muscle Tone WNL Yes M6 PT-IP Treatment Start: 11/24/21 12:45 Freq: NEEDED Status: Active Protocol: Document 11/24/21 09:35 [facility] (Rec: 11/24/21 13:00 AB [id number]) Physical Therapy Treatment Education Education Provided Precautions,Safety M7 PT-IP Assessment and Plan Start: 11/24/21 12:45 Freq: NEEDED Status: Active Protocol: Document 11/24/21 09:35 [facility] (Rec: 11/24/21 13:00 AB [id number]) PT Summary Assessment and Plan Potential Rehabilitation Potential Good Status of Condition at Evaluation Stable Summary Impairments Pain,ROM,Strength,Balance, Coordination,Sensation,Tone, Cognition,Bed Mobility, Transfers,Gait,Activity Tolerance Assessment Summary pt requiring SBA with mobility and will have her spouse assist her at home. pt may go home when medically stable. Goals Bed Mobility Goal Independent Transfer Goal Independent Gait Goal Independent Gait Distance 300 Other Goals up/down 15 steps 1 rail mod I Days to Meet Goals 5 Frequency of Treatment Frequency Of Treatment Twice a Day Treatment Plan Physical Therapy Treatment Plan Bed Mobility Training,Transfer Training,Gait Training, Therapeutic Exercise,Balance Retraining,Post Op Education, Discharge Planning,Hot or Cold Pack,Neuromuscular Re-ed, Coordination Retraining,Manual Therapy Precautions Cervical Spine Precautions Soft Collar for Comfort,No Heavy Lifting,Log Roll Recommendations To Nursing Amount of Assist Needed Standby Assistance Discharge Recommendations PT Discharge Recommendations Home with Assistance Transportation Needs at Discharge Private Vehicle
--- NOTE | 2021-11-24 11:44 | PC.NURSE ---
Pt alert and oriented, asking about going home. Dressing to neck changed, mark well. Medicated as needed for pain. Discharge orders written. D/c instructions given. Pt signs stating understanding. IV discontinued intact.Pt escorted via w/c to car. mark activity well. I
== END 2021-11-24 10:30 | disposition home or self-care (01) ==
LOC: OR 12:13 → AC 12:13
PROVIDERS: Referring Provider Orthopaedic Surgery Orthopaedic Surgery of the Spine; Visit Provider Orthopaedic Surgery Orthopaedic Surgery of the Spine
PROC: (CPT 22551; principal; 2021-11-23 13:45)
DX: M48.02 Spinal stenosis, cervical region (principal); M47.12 Other spondylosis with myelopathy, cervical region; F17.210 Nicotine dependence, cigarettes, uncomplicated; M54.12 Radiculopathy, cervical region
CPT/HCPCS: 22551; 22552; 22853 ×2; 72040; 76000; 82962; 94760; 97161; 97165; 97535; C1713; J0171; J0690; J1100; J1170; J2060; J2250; J2405; J2704; J3010